=== PATIENT | female | born 1985 | race Caucasian/White ===

== ENCOUNTER 2022-06-18 08:11 | Emergency (ER) | payer OTHER, SELFPAY ==
--- NOTE | ~2022-06-18 | US_ITS ---
EXAMINATION: US OBSTETRICAL ULTRASOUND CLINICAL INFORMATION: Cramping, spotting, positive test. COMPARISON: None. LMP: 05/11/2022. Gestational age by maternal dates is 5 weeks 3 days. Estimated date of delivery by maternal dates is 02/15/2023. TECHNIQUE: Ultrasound of the maternal pelvis is performed using transabdominal and transvaginal transducers. Transvaginal imaging is performed due to inadequate visualization transabdominally. M-mode Doppler is also performed. FINDINGS: There is a single intrauterine gestational sac with visible yolk sac. There is a tiny subchorionic hemorrhage measuring approximately 0.3 x 0.5 x 0.7 cm. Gestational Sac (average dimension): 0.91 cm (5 weeks 4 days +/- 4 days). MATERNAL ADNEXA: The right maternal ovary measures 3.4 x 2.1 x 2.3 cm. The left maternal ovary is not visualized. No visible maternal pelvic mass or ascites. US/US OB pelvic and transvaginal IMPRESSION: -Single intrauterine gestation with visible yolk sac. Average sac dimension 5 weeks 4 days. -Tiny subchorionic hemorrhage measuring under 1 cm. -No maternal adnexal mass or ascites. Left ovary not visualized.
[2022-06-18 08:15] VITALS: BP 145/87; PULSE 100; RESP 18; TEMP 36.8; O2SAT 98; BMI 26.7
[2022-06-18 08:37] VITALS: BP 148/93; PULSE 98; RESP 14; TEMP 36.9; O2SAT 100
--- NOTE | 2022-06-18 08:51 | ED_ITS ---
HPI - Abdominal Pain General Chief Complaint: Back Pain/Injury Stated Complaint: positive test, abd pain Time Seen by Provider: 06/18/22 08:31 Source: patient Mode of arrival: ambulatory Limitations: no limitations History of Present Illness HPI narrative: 36 yo female (miscarriage) LMP may 11 has been having lower abdominal pain and some mild brown spotting - had positive test at home on Friday. MD elicited complaint: abdominal pain Pertinent past history: none Onset (ago): day(s) (2) Pain Consistency: intermittent Location: LLQ and pelvis Severity: mild Quality: dull Radiation: none Migration to: no migration Exacerbating factors: nothing Relieving factors: nothing Context: other (+ positive test) Associated symptoms: other (light brown spotting) Related Data Allergies Allergy/AdvReac Type Severity Reaction Status Date / Time No Known Allergies Allergy Verified 06/18/22 08:15 Review of Systems Review of Systems Constitutional : No Weight loss, No Fever, No Chills ENT/Mouth : No sore throat, No Rhinorrhea Eyes: No Swelling, No Redness Cardiovascular : No Chest Pain, No SOB, NoEdema Respiratory : No Cough, No Sputum, No Wheezing Gastrointestinal : no Nausea, no Vomiting, no Diarrhea, positive abdominal Pain, No Hematochezia, No Melena Genitourinary : No Dysuria, No Urinary Frequency, No Hematuria, No Urgency, pos light brown spotting Musculoskeletal : No joint pain, No Myalgias, No Joint Swelling Skin : No Skin Lesions, No rash Neuro : No Weakness, No Numbness, No Dizziness, No Headache Psych : No Anxiety/Panic, No Depression Heme/Lymph: No Bruising, No Lymphadenopathy Endocrine : No Polyuria, No Polydipsia All other systems reviewed and are negative. PENDING SALE TO [facility] Past Medical History Medical History No pertinent past medical history Social History Social History Alcohol intake: never Patient Tobacco Use Status: Never used Tobacco Use of substances other than those prescribed or required for medical reasons: No Advance Directives: No Advance Directives Information Provided: Yes Patient : Yes Physical Exam ED Vital Signs: Vital Signs - 24 hr 06/18/22 08:15 06/18/22 08:37 06/18/22 10:50 Temperature 98.3 F 98.5 F Pulse Rate 100 98 91 Respiratory Rate 18 14 16 Blood Pressure 145/87 H 148/93 H 134/83 Pulse Oximetry 98 100 100 Oxygen Delivery Method Room Air Room Air Room Air BMI result Body Mass Index 26.7 Appearance: Alert. Oriented X3. No acute distress. Eyes: Pupils equal, round and reactive to light. ENT: Pharynx normal. Neck: Normal inspection. Neck supple. CVS: Normal heart rate and rhythm. Pulses normal. Respiratory: No respiratory distress. Breath sounds normal. Abdomen: Soft and non-tender. Skin: Skin warm and dry. Normal skin color. Normal skin turgor. Extremities: No lower extremity edema. No calf ttp Neuro: Oriented X 3. No motor deficit. No sensory deficit. MDM - Abdominal Pain MDM Narrative Medical decision making narrative: 36 yo female with LMP 7/9 here with positive test at home on Friday now with LLQ pain and some mild scant brown spotting at this time labs, quant and likely US to r/o ectopic though doubt as her abdomen is very benign. Lab Data Result diagrams: 06/18/22 08:42 06/18/22 08:42 Labs: Lab Results 06/18/22 06/18/22 06/18/22 Range/Units 08:42 08:42 08:51 WBC 6.8 (4.8-10.8) X10*3/uL RBC 5.02 (4.20-5.50) X10*6/uL Hgb 14.8 (12.0-16.0) g/dl Hct 44.7 (37.0-47.0) % MCV 89.0 (80.0-98.0) fL MCH 29.5 (27.0-33.0) pg MCHC 33.1 (31.0-35.0) g/dl RDW 13.0 (11.0-16.0) % Plt Count 352 (160-400) X10*3/uL MPV 9.8 (9.4-12.3) fL Immature Gran % (Auto) 0.4 (0.0-0.4) % Neut % (Auto) 69.3 (45-73) % Lymph % (Auto) 20.7 (20-40) % Norton % (Auto) 8.4 (2-11) % Eos % (Auto) 0.6 (0-4) % Baso % (Auto) 0.6 (0-2) % Lymph # (Auto) 1.4 (1.2-4.9) X10*3/uL Norton # (Auto) 0.6 (0.1-1.2) X10*3/uL Eos # (Auto) 0.0 (0.0-0.4) X10*3/uL Baso # (Auto) 0.0 (0.0-0.2) X10*3/uL Abs Immat Gran (auto) 0.03 (0.00-0.03) X10*3/uL Absolute Neuts (auto) 4.7 (2.0-8.3) x10*3/uL Absolute Nucleated RBC 0.000 (0.0-0.012) X10*3/uL Nucleated RBC % (auto) 0.0 (0.0-0.2) /100WBC Sodium 139 (135-145) mmol/L Potassium 3.8 (3.3-5.1) mmol/L Chloride 106 (96-108) mmol/L Carbon Dioxide 23 (22-29) mmol/L Anion Gap 14 (12-20) BUN 7 L (9-16) mg/dL Creatinine 0.71 (0.5-1.4) mg/dL Estim Creat Clear Calc 91.0 Estimated GFR > 60 Random Glucose 87 (60-115) mg/dL Calcium 8.7 (8.4-10.2) mg/dL Total Bilirubin 0.5 (0.0-1.0) mg/dL Direct Bilirubin 0.3 (0.0-0.5) mg/dL AST 17 (5-31) U/L ALT 16 (0-31) U/L Alkaline Phosphatase 52 (39-117) U/L Total Protein 7.0 (6.5-8.0) g/dL Albumin 4.0 (3.5-5.0) g/dL Beta HCG, Quant 51008 mIU/mL Urine Color Yellow Urine Appearance Clear Urine pH 6.5 (5.0-8.0) Ur Specific Ong 1.010 (1.005-1.025) Urine Protein Negative (Neg-Trace) mg/dL Urine Glucose (UA) Negative (Negative) mg/dL Urine Ketones Negative (Negative) mg/dL Urine Blood Negative (Negative) Urine Nitrite Negative (Negative) Ur Leukocyte Esterase Negative (Negative) Urine Test (NEGATIVE) 06/18/22 Range/Units 08:51 WBC (4.8-10.8) X10*3/uL RBC (4.20-5.50) X10*6/uL Hgb (12.0-16.0) g/dl Hct (37.0-47.0) % MCV (80.0-98.0) fL MCH (27.0-33.0) pg MCHC (31.0-35.0) g/dl RDW (11.0-16.0) % Plt Count (160-400) X10*3/uL MPV (9.4-12.3) fL Immature Gran % (Auto) (0.0-0.4) % Neut % (Auto) (45-73) % Lymph % (Auto) (20-40) % Norton % (Auto) (2-11) % Eos % (Auto) (0-4) % Baso % (Auto) (0-2) % Lymph # (Auto) (1.2-4.9) X10*3/uL Norton # (Auto) (0.1-1.2) X10*3/uL Eos # (Auto) (0.0-0.4) X10*3/uL Baso # (Auto) (0.0-0.2) X10*3/uL Abs Immat Gran (auto) (0.00-0.03) X10*3/uL Absolute Neuts (auto) (2.0-8.3) x10*3/uL Absolute Nucleated RBC (0.0-0.012) X10*3/uL Nucleated RBC % (auto) (0.0-0.2) /100WBC Sodium (135-145) mmol/L Potassium (3.3-5.1) mmol/L Chloride (96-108) mmol/L Carbon Dioxide (22-29) mmol/L Anion Gap (12-20) BUN (9-16) mg/dL Creatinine (0.5-1.4) mg/dL Estim Creat Clear Calc Estimated GFR Random Glucose (60-115) mg/dL Calcium (8.4-10.2) mg/dL Total Bilirubin (0.0-1.0) mg/dL Direct Bilirubin (0.0-0.5) mg/dL AST (5-31) U/L ALT (0-31) U/L Alkaline Phosphatase (39-117) U/L Total Protein (6.5-8.0) g/dL Albumin (3.5-5.0) g/dL Beta HCG, Quant mIU/mL Urine Color Urine Appearance Urine pH (5.0-8.0) Ur Specific Ong (1.005-1.025) Urine Protein (Neg-Trace) mg/dL Urine Glucose (UA) (Negative) mg/dL Urine Ketones (Negative) mg/dL Urine Blood (Negative) Urine Nitrite (Negative) Ur Leukocyte Esterase (Negative) Urine Test POSITIVE H (NEGATIVE) Discharge Plan Discharge Clinical Impression: Qualifiers: Weeks of gestation: less than 8 weeks Qualified Code(s): Z3A.01 - Less than 8 weeks gestation of Subchorionic hematoma Qualifiers: Fetus number: single or unspecified fetus Trimester: first trimester Qualified Code(s): O41.8X10 - Other specified disorders of amniotic fluid and membranes, first trimester, not applicable or unspecified Patient Disposition: Home, Self-Care Instructions: (ED), Subchorionic Hemorrhage (ED) Additional Instructions: return to ED for any worsening symptoms or concerns FOLLOW UP WITH OB OR PLANNED PARENTHOOD in 2 days. CLINICAL INFORMATION:? Cramping, spotting, positive test. COMPARISON:? None.? LMP: 05/11/2022. Gestational age by maternal dates is 5 weeks 3 days. Estimated date of delivery by maternal dates is 02/15/2023. TECHNIQUE: Ultrasound of the maternal pelvis is performed using transabdominal and transvaginal transducers. Transvaginal imaging is performed due to inadequate visualization transabdominally. M-mode Doppler is also performed. ? FINDINGS: There is a single intrauterine gestational sac with visible yolk sac. There is a tiny subchorionic hemorrhage measuring approximately 0.3 x 0.5 x 0.7 cm. Gestational Sac (average dimension): ? 0.91 cm (5 weeks 4 days +/- 4 days). MATERNAL ADNEXA: ? ? The right maternal ovary measures 3.4 x 2.1 x 2.3 cm. The left maternal ovary is not visualized. No visible maternal pelvic mass or ascites. US/US OB pelvic and transvaginal IMPRESSION: -Single intrauterine gestation with visible yolk sac. Average sac dimension 5 weeks 4 days. -Tiny subchorionic hemorrhage measuring under 1 cm. -No maternal adnexal mass or ascites. Left ovary not visualized. Stand Alone Forms: Work/School Release
[2022-06-18 08:58] LABS: MANUAL DIFF FLAG NO
[2022-06-18 09:03] LABS: Basophils Percent Auto 0.6 % (0-2); Eosinophils Percent Auto 0.6 % (0-4); Hematocrit 44.7 % (37.0-47.0); Hemoglobin 14.8 g/dl (12.0-16.0); Imm Gran Abs Auto 0.03 X10*3/uL (0.00-0.03); Imm Gran Pct Auto 0.4 % (0.0-0.4); Lymphocytes Absolute Auto 1.4 X10*3/uL (1.2-4.9); Lymphocytes Percent Auto 20.7 % (20-40); Mean Corpuscular HGB Conc 33.1 g/dl (31.0-35.0); Mean Corpuscular Hemoglobin 29.5 pg (27.0-33.0); Mean Platelet Volume 9.8 fL (9.4-12.3); Monocytes Absolute Auto 0.6 X10*3/uL (0.1-1.2); Monocytes Percent Auto 8.4 % (2-11); Neutrophils Absolute Auto 4.7 x10*3/uL (2.0-8.3); Neutrophils Percent Auto 69.3 % (45-73); Platelet Count 352 X10*3/uL (160-400); Red Blood Count 5.02 X10*6/uL (4.20-5.50); White Blood Count 6.8 X10*3/uL (4.8-10.8)
[2022-06-18 09:10] LABS: Appearance Urine Clear; Color Urine Yellow; Glucose Urine UA Negative (Negative); Leukocyte Esterase Urine Negative (Negative); Nitrite Urine Negative (Negative); PH 6.5 (5.0-8.0); Urine Blood Negative (Negative); Urine Ketones Negative (Negative); Urine Protein Negative (Neg-Trace)
[2022-06-18 09:11] LABS: UPreg QC Valid YES; Urine Pregnancy POSITIVE (NEGATIVE)
[2022-06-18 09:17] LABS: Alanine Aminotransferase 16 U/L (0-31); Alkaline Phosphatase 52 U/L (39-117); Anion Gap 14 (12-20); Aspartate Amino Transferase 17 U/L (5-31); Bilirubin Direct 0.3 mg/dL (0.0-0.5); Bilirubin Total 0.5 mg/dL (0.0-1.0); Blood Urea Nitrogen 7 mg/dL (9-16); Calcium 8.7 mg/dL (8.4-10.2); Carbon Dioxide 23 mmol/L (22-29); Chloride 106 mmol/L (96-108); Estimated Glomerular Filt Rate > 60; Glucose Random 87 mg/dL (60-115); Potassium 3.8 mmol/L (3.3-5.1); Sodium 139 mmol/L (135-145)
[2022-06-18 09:45] LABS: HCG Quantitative 19909 mIU/mL
[2022-06-18 10:50] VITALS: BP 134/83; PULSE 91; RESP 16; O2SAT 100
== END 2022-06-18 12:09 | disposition home or self-care (01) ==
PROVIDERS: Emergency Provider Emergency Medicine
DX: O41.8X10 Other specified disorders of amniotic fluid and membranes, first trimester, not applicable or unspecified (principal); M54.50 Low back pain, unspecified; R10.9 Unspecified abdominal pain; Z3A.01 Less than 8 weeks gestation of pregnancy; Z79.899 Other long term (current) drug therapy
CPT/HCPCS: 36415; 76801; 76817; 80048; 80076; 81003; 81025; 84702; 85025; 99284